=== PATIENT | female | born 1985 | race Caucasian/White ===

== ENCOUNTER 2021-10-21 15:19 | Outpatient (RCR) | payer OTHER, SELFPAY ==
[2021-10-21] MEDS: RHO(D) IMMUNE GLOBULIN 300 MCG/2 ML SYRINGE IM (14:08)
== END 2021-10-21 16:00 | disposition home or self-care (01) ==
LOC: ANHLAB 15:19
PROVIDERS: Visit Provider Obstetrics & Gynecology
DX: Z29.13 Encounter for prophylactic Rho(D) immune globulin (principal); O26.859 Spotting complicating pregnancy, unspecified trimester; O36.0190 Maternal care for anti-D [Rh] antibodies, unspecified trimester, not applicable or unspecified; Z3A.00 Weeks of gestation of pregnancy not specified
CPT/HCPCS: 36415; 85461; 90384; 96372; J2790

== ENCOUNTER 2022-03-12 15:52 | Outpatient (RCR) | payer OTHER, SELFPAY ==
[2022-03-13] MEDS: RHO(D) IMMUNE GLOBULIN 300 MCG/2 ML SYRINGE IM (16:12)
== END 2022-06-10 23:59 | disposition home or self-care (01) ==
LOC: ANHLAB 15:52
PROVIDERS: Visit Provider Obstetrics & Gynecology
DX: Z29.13 Encounter for prophylactic Rho(D) immune globulin (principal); O36.0130 Maternal care for anti-D [Rh] antibodies, third trimester, not applicable or unspecified; Z3A.00 Weeks of gestation of pregnancy not specified
CPT/HCPCS: 36415; 85461; 86850; 86900; 86901; 90384; 96372; J2790

== ENCOUNTER 2022-04-06 22:03 | Observation (INO) | payer OTHER, SELFPAY ==
[2022-04-06] VITALS (7 sets, daily range): BP systolic 103–113; BP diastolic 59–70; PULSE 106–126
[2022-04-06 22:49] LABS: Appearance Urine Slightly Cloudy (Clear); Bilirubin Urine Negative (Negative); Blood Urine Negative (Negative); Color Urine Yellow (Yellow); Glucose Urine UA Negative (Negative); Ketones Urine 4+ mg/dL (Negative); Leukocyte Esterase Ur Trace LEU/UL (Negative); Nitrate Urine Negative (Negative); Protein Urine Negative (Negative); Urobilinogen Urine 0.2 mg/dL (<2.0)
[2022-04-06 22:55] LABS: Bacteria Urine Trace /hpf; Mucus Urine Rare /lpf; Squamous Epithelial Cell Urine Many /hpf (Few)
[2022-04-06 22:59] LABS: Add Urine Microscopic? YES
[2022-04-06] MEDS: ONDANSETRON INJ 4 MG/2 ML VIAL IV PUSH (23:30)
[2022-04-06] MEDS: LACTATED RINGERS 1,000 ML 999 ML IV CONT (23:30)
[2022-04-06 23:41] LABS: Hemoglobin 10.3 g/dL (12.0-15.0); Mean Corpuscular HGB Conc 32.2 g/dl (32-36); Mean Corpuscular Hemoglobin 27.1 pg (26-34); Mean Corpuscular Volume 84.2 fl (80-100); Mean Platelet Volume 10.1 fl (7.4-10.4); Platelet Count Result 192 k/mm3 (150-375); White Blood Count 10.8 K/mm3 (4.5-10.0)
[2022-04-06 23:54] LABS: Alanine Aminotransferase 16 U/L (6-35); Albumin Level 3.9 g/dL (3.5-5.1); Alkaline Phosphatase 107 U/L (38-126); Anion Gap 6 mmol/L (8-16); Aspartate Amino Transferase 26 U/L (14-36); Bilirubin,Total 0.6 mg/dL (0.2-1.3); Blood Urea Nitrogen 9 mg/dL (7-17); Calcium 8.4 mg/dL (8.4-10.2); Carbon Dioxide 24 mmol/L (22-30); Chloride 101 mmol/L (98-107); Estimated Glomerular Filt Rate > 60; Glucose 83 mg/dL (65-110); Potassium 3.6 mmol/L (3.4-5.0); Sodium 131 mmol/L (137-145)
[2022-04-07] VITALS (36 sets, daily range): BP systolic 86–107; BP diastolic 45–64; PULSE 102–136; TEMP 37.7; O2SAT 95–100; BMI 24.2
[2022-04-07] MEDS: NIFEdipine 30 MG TAB.ER.24 PO (00:15)
[2022-04-07] MEDS: TERBUTALINE SULFATE 1 MG/ML VIAL 0.25 MG SUB-Q (02:10)
[2022-04-07] MEDS: LACTATED RINGERS 1,000 ML 100 ML IV CONT (02:10)
--- NOTE | 2022-04-07 03:38 | OBADM ---
This patient, Judith Sykes, admitted to the OB room [facility] for observation. Patient/family oriented to hospital policies and general routines including ID bracelet, bed and alarms, visiting hours, pain management, procedures, bathroom and other care routines, personal items, smoking policy, room service/diet, and visiting hours. Patient/Family are encouraged to report perceived risks to care and to ask questions if they do not understand what they are told or what they should do.
[2022-04-07 04:22] LABS: Fetal Fibronectin Negative
--- NOTE | 2022-04-10 17:00 | P.PNOB_ITS ---
OB - Triage/Final Diagnosis Visit Information Date of evaluation: 04/06/22 Reason for evaluation: threatened labor Comments/Additional reasons for admission: I have assessed the risk for this patient, Judith Sykes, and determined that she would benefit from observation care. Evaluation Laboratory results: Laboratory Tests 04/06/22 04/06/22 04/06/22 22:31 23:32 23:32 WBC 10.8 H RBC 3.80 L Hgb 10.3 L Hct 32.0 L MCV 84.2 MCH 27.1 MCHC 32.2 RDW 14.0 Plt Count 192 MPV 10.1 Sodium 131 L Potassium 3.6 Chloride 101 Carbon Dioxide 24 Anion Gap 6 L BUN 9 Creatinine 0.50 L Estim Creat Clear Calc Not Reportable Estimated GFR > 60 Glucose 83 Calcium 8.4 Total Bilirubin 0.6 AST 26 ALT 16 Alkaline Phosphatase 107 Total Protein 7.0 Albumin 3.9 Urine Color Yellow Urine Appearance Slightly cloudy Urine pH 6.0 Ur Specific [place] 1.020 Urine Protein Negative Urine Glucose (UA) Negative Urine Ketones 4+ H Ur Blood (Man) Negative Urine Nitrate Negative Urine Bilirubin Negative Urine Urobilinogen 0.2 Leukocyte Esterase Rfl Trace H Urine RBC 3-5 H Urine WBC 4-6 H Ur Squamous Epith Cells Many H Urine Bacteria Trace Urine Mucus Rare Fibronectin 04/07/22 02:20 WBC RBC Hgb Hct MCV MCH MCHC RDW Plt Count MPV Sodium Potassium Chloride Carbon Dioxide Anion Gap BUN Creatinine Estim Creat Clear Calc Estimated GFR Glucose Calcium Total Bilirubin AST ALT Alkaline Phosphatase Total Protein Albumin Urine Color Urine Appearance Urine pH Ur Specific [place] Urine Protein Urine Glucose (UA) Urine Ketones Ur Blood (Man) Urine Nitrate Urine Bilirubin Urine Urobilinogen Leukocyte Esterase Rfl Urine RBC Urine WBC Ur Squamous Epith Cells Urine Bacteria Urine Mucus Fibronectin Negative
== END 2022-04-07 03:45 | disposition home or self-care (01) ==
PROVIDERS: Advanced Practice Midwife; Admitting Provider Obstetrics & Gynecology; Visit Provider Obstetrics & Gynecology
DX: O47.03 False labor before 37 completed weeks of gestation, third trimester (principal); Z3A.31 31 weeks gestation of pregnancy
CPT/HCPCS: 36415; 80053; 81001; 82731; 85027; 96372; 96374; A9270; G0378; G0379; J0131; J2405; J3105; J7120

== ENCOUNTER 2022-05-29 06:52 | Inpatient (IN) | payer OTHER, SELFPAY ==
[2022-05-29] VITALS (62 sets, daily range): BP systolic 75–132; BP diastolic 30–89; PULSE 40–140; RESP 18; TEMP 36.8–37.1; O2SAT 86–100
--- NOTE | 2022-05-29 07:21 | LDADM ---
This patient, Judith Sykes, was admitted to Labor/Delivery/Recovery 104 on 05/29/22 at 06:52. Plans for labor, pain management and were discussed with patient. Patient/family oriented to hospital policies and general routines including ID bracelet, bed and alarms, visiting hours, pain management, procedures, bathroom and other care routines, personal items, smoking policy, room service/diet and guest tray routines, security routines, and visiting hours. Patient/Family are encouraged to report perceived risks to care and to ask questions if they do not understand what they are told or what they should do. See [facility] for further documentation.
[2022-05-29 07:41] LABS: Basophils Absolute Auto 0.1 K/mm3 (0.0-0.1); Basophils Percent Auto 0.5 % (0.2-1.2); Eosinophils Absolute Auto 0.1 K/mm3 (0-0.3); Eosinophils Percent Auto 1.3 % (0-4.4); Hematocrit 29.5 % (37.0-47.0); Hemoglobin 8.8 g/dL (12.0-15.0); Immature Granulocyte Absolute 0.05 K/mm3 (0.00-0.031); Immature Granulocyte Percent A 0.5 % (0-0.5); Lymphocytes Percent Auto 20.8 % (18.3-44.2); Mean Corpuscular HGB Conc 29.8 g/dl (32-36); Mean Platelet Volume 10.7 fl (7.4-10.4); Monocytes Absolute Auto 0.6 K/mm3 (0.1-0.6); Monocytes Percent Auto 6.4 % (2.6-8.5); Neutrophils Absolute Auto 6.4 K/mm3 (1.3-6.7); Neutrophils Percent Auto 70.5 % (45.5-73.1); Platelet Count Result 162 k/mm3 (150-375); Red Blood Count 3.83 M/mm3 (4.2-5.4); Red Cell Distribution Width 16.7 % (11.5-14.5); White Blood Count 9.1 K/mm3 (4.5-10.0)
[2022-05-29 07:42] LABS: Glucose Point of Care 71 mg/dl (65-105)
[2022-05-29 07:54] LABS: Platelet Estimate Adequate (Adequate)
[2022-05-29 07:55] LABS: Ovalocytes 1+ (NORMAL); Schistocytes None Seen (NORMAL); Tear Drop Cells 1+ (NORMAL)
--- NOTE | 2022-05-29 08:11 | WPDOBADMIT ---
Obstetrics - Admit Note Admission Note: 37 y/o here for induction of labor. GDM insulin dependent but overall very good control. Pt has requested just arom and pitocin later only if needed. VSS Contractions occasiona FHR category 1 Cervix /-2 AROM small amount of clear odorless fluid Anticipate record reviewed. No pertinent additions to the history and/or any subsequent changes in the physical findings that are not consistent with the expected course of the were found. Additions to the history and/or subsequent changes in the physical findings follow. None.
[2022-05-29 11:28] LABS: Rapid Plasma Reagin Non-Reactive (NonReactive)
[2022-05-29 11:39] LABS: Glucose Point of Care 86 mg/dl (65-105)
[2022-05-29] MEDS: OXYTOCIN 30 UNITS/NS 500 ML 30 UNITS/500 ML BAG IV CONT (14:01)
[2022-05-29] MEDS: LACTATED RINGERS 1,000 ML 125 ML IV CONT ×2 (14:02→16:05)
[2022-05-29 15:06] LABS: Glucose Point of Care 75 mg/dl (65-105)
--- NOTE | 2022-05-29 16:22 | WPDANESEPPF ---
Anes - Initial Pre Proc Eval Date/Time: 05/29/22 16:22 Surgeon: Jasper Joyce MD Pre Op Diagnosis: Induction of Labor Patient Data Age: 37 Gender: F Height: Weight: Last Vital Signs Temp 36.8 C 05/29/22 16:08 Pulse 91 05/29/22 16:04 BP 107/74 05/29/22 16:04 O2 Del Method Room Air 05/29/22 07:18 Allergies Allergy/AdvReac Type Severity Reaction Status Date / Time No Known Allergies Allergy Mild Verified 05/21/22 13:35 Home Medications Medication Instructions Recorded Confirmed Type insulin NPH isoph U-100 human 100 5 unit subcut HS 05/21/22 05/21/22 History unit/mL subcutaneous suspension (Humulin N NPH U-100 Insulin (isophane susp)) prenat.vits,deysi,[id number] 1 tablet PO DAILY 05/21/22 05/21/22 History Laboratory Tests 05/29/22 05/29/22 05/29/22 07:13 07:13 07:13 WBC 9.1 K/mm3 K/mm3 (4.5-10.0) RBC 3.83 M/mm3 L M/mm3 (4.2-5.4) Hgb 8.8 g/dL L g/dL (12.0-15.0) Hct 29.5 % L % (37.0-47.0) MCV 77.0 fl L fl (80-100) MCH 23.0 pg L pg (26-34) MCHC 29.8 g/dl L g/dl (32-36) RDW 16.7 % H % (11.5-14.5) Plt Count 162 k/mm3 k/mm3 (150-375) MPV 10.7 fl H fl (7.4-10.4) Immature Gran % (Auto) 0.5 % % (0-0.5) Neut % (Auto) 70.5 % % (45.5-73.1) Lymph % (Auto) 20.8 % % (18.3-44.2) [place] % (Auto) 6.4 % % (2.6-8.5) Eos % (Auto) 1.3 % % (0-4.4) Baso % (Auto) 0.5 % % (0.2-1.2) Lymph # (Auto) 1.90 K/mm3 K/mm3 (0.9-3.2) [place] # (Auto) 0.6 K/mm3 K/mm3 (0.1-0.6) Eos # (Auto) 0.1 K/mm3 K/mm3 (0-0.3) Baso # (Auto) 0.1 K/mm3 K/mm3 (0.0-0.1) Abs Immat Gran (auto) 0.05 K/mm3 H K/mm3 (0.00-0.031) Absolute Neuts (auto) 6.4 K/mm3 K/mm3 (1.3-6.7) Absolute Nucleated RBC 0.0 K/mm3 K/mm3 (0.0-0.012) Nucleated RBC % 0.0 % % (0.0-0.2) Platelet Estimate Adequate (Adequate) Tear Drop Cells 1+ (NORMAL) Ovalocytes 1+ (NORMAL) Schistocytes None seen (NORMAL) POC Capillary Glucose RPR Non-reactive (NonReactive) Blood Type AB Negative Antibody Screen Positive Antibody Identification Inconclusive Antigen Identification Not Reportable VERNA, IgG Interpret Not Performed VERNA, Poly Interpret Negative VERNA, Complement Interp Not Performed 05/29/22 05/29/22 05/29/22 07:35 11:35 15:03 WBC RBC Hgb Hct MCV MCH MCHC RDW Plt Count MPV Immature Gran % (Auto) Neut % (Auto) Lymph % (Auto) [place] % (Auto) Eos % (Auto) Baso % (Auto) Lymph # (Auto) [place] # (Auto) Eos # (Auto) Baso # (Auto) Abs Immat Gran (auto) Absolute Neuts (auto) Absolute Nucleated RBC Nucleated RBC % Platelet Estimate Tear Drop Cells Ovalocytes Schistocytes POC Capillary Glucose 71 mg/dl mg/dl 86 mg/dl mg/dl 75 mg/dl mg/dl (65-105) (65-105) (65-105) RPR Blood Type Antibody Screen Antibody Identification Antigen Identification VERNA, IgG Interpret VERNA, Poly Interpret VERNA, Complement Interp Patient hx anesthesia problems: none Family hx anesthesia problems: none Results Review: All pre-operative results and documents have been reviewed as part of the pre-operative evaluation. [facility] Family History Family History (Updated 05/21/22 @ 13:39 by Jacquie Thurman RN) Other
[2022-05-29] MEDS: ONDANSETRON INJ 4 MG/2 ML VIAL IV PUSH (17:30)
[2022-05-29] MEDS: PHENYLEPHRINE 1,000 MCG/10 ML SYRINGE 100 MCG IV PUSH (17:39)
--- NOTE | 2022-05-29 18:18 | P.PCNOB_ITS ---
OB - Delivery Note Procedure Delivery date: 05/29/22 Procedure: Events: Gestational Diabetes Induction method: Per Pitocin Protocol Delivery monitor: External FHT and External Uterine Route of delivery: Episiotomy description: None Laceration Description: None Quantitative Blood Loss (ml): 52 Anesthesia type: Epidural [place] Baby Date of : 05/29/22 Time of : 18:04 Weeks of gestation at delivery: 39 presentation: vertex position: Left Occiput Anterior Placenta delivery description: Spontaneous Cord Vessel Description: 3 Vessels, Nuchal Cord, Loose and Reduced
[2022-05-29] MEDS: OXYTOCIN 30 UNITS/NS 500 ML 30 UNITS/500 ML BAG 125 UNITS IV CONT (18:49)
[2022-05-29] MEDS: IBUPROFEN 600 MG TABLET PO (22:21)
[2022-05-30 04:19] VITALS: BP 104/50; PULSE 80; RESP 18; TEMP 36.9; O2SAT 100
[2022-05-30 05:37] LABS: Hematocrit 27.4 % (37.0-47.0); Hemoglobin 8.3 g/dL (12.0-15.0)
[2022-05-30 06:54] LABS: Glucose Point of Care 80 mg/dl (65-105)
[2022-05-30 07:20] VITALS: BP 96/58; PULSE 65; RESP 16; TEMP 36.5; O2SAT 99
[2022-05-30] MEDS: DOCUSATE SODIUM 100 MG CAPSULE PO (07:35)
[2022-05-30] MEDS: MULTIVIT/MIN/PREN/FOL AC/IRON TABLET 1 TAB PO (07:35)
[2022-05-30] MEDS: POLYSACCHARIDE IRON COMPLEX 150 MG CAPSULE PO ×2 (07:35→16:51)
--- NOTE | 2022-05-30 07:41 | PM.OBPNVD ---
OB - PN: Subj Subjective Date/time seen: 05/30/22 07:41 s/p vaginal delivery day 1 OB - PN: Obj Data Labs 05/30/22 03:04 Labs: Laboratory Results - last 24 hr 05/29/22 05/29/22 05/29/22 07:13 07:13 07:13 WBC 9.1 RBC 3.83 L Hgb 8.8 L Hct 29.5 L MCV 77.0 L MCH 23.0 L MCHC 29.8 L RDW 16.7 H Plt Count 162 MPV 10.7 H Immature Gran % (Auto) 0.5 Neut % (Auto) 70.5 Lymph % (Auto) 20.8 Al[place]alfa % (Auto) 6.4 Eos % (Auto) 1.3 Baso % (Auto) 0.5 Lymph # (Auto) 1.90 [place] # (Auto) 0.6 Eos # (Auto) 0.1 Baso # (Auto) 0.1 Abs Immat Gran (auto) 0.05 H Absolute Neuts (auto) 6.4 Absolute Nucleated RBC 0.0 Nucleated RBC % 0.0 Platelet Estimate Adequate Tear Drop Cells 1+ Ovalocytes 1+ Schistocytes None seen POC Capillary Glucose RPR Non-reactive Blood Type AB Negative Antibody Screen Positive Antibody Identification Inconclusive Antigen Identification Not Reportable VERNA, IgG Interpret Not Performed VERNA, Poly Interpret Negative VERNA, Complement Interp Not Performed 05/29/22 05/29/22 05/29/22 07:35 11:35 15:03 WBC RBC Hgb Hct MCV MCH MCHC RDW Plt Count MPV Immature Gran % (Auto) Neut % (Auto) Lymph % (Auto) [place] % (Auto) Eos % (Auto) Baso % (Auto) Lymph # (Auto) [place]alf[place] # (Auto) Eos # (Auto) Baso # (Auto) Abs Immat Gran (auto) Absolute Neuts (auto) Absolute Nucleated RBC Nucleated RBC % Platelet Estimate Tear Drop Cells Ovalocytes Schistocytes POC Capillary Glucose 71 86 75 RPR Blood Type Antibody Screen Antibody Identification Antigen Identification VERNA, IgG Interpret VERNA, Poly Interpret VERNA, Complement Interp 05/30/22 05/30/22 05/30/22 03:04 03:04 06:47 WBC RBC Hgb 8.3 L Hct 27.4 L MCV MCH MCHC RDW Plt Count MPV Immature Gran % (Auto) Neut % (Auto) Lymph % (Auto) [place] % (Auto) Eos % (Auto) Baso % (Auto) Lymph # (Auto) [place] # (Auto) Eos # (Auto) Baso # (Auto) Abs Immat Gran (auto) Absolute Neuts (auto) Absolute Nucleated RBC Nucleated RBC % Platelet Estimate Tear Drop Cells Ovalocytes Schistocytes POC Capillary Glucose 80 RPR Blood Type AB Negative Antibody Screen TNP Antibody Identification Antigen Identification VERNA, IgG Interpret VERNA, Poly Interpret VERNA, Complement Interp OB - PN A/P Plan day: 1 Time Spent With Patient Time: Total time spent is greater than 50% in coordination of care (as documented) at patient's floor/unit and/or counseling patient: Review of Systems Review of Systems: All systems reviewed & are unremarkable except as noted in HPI and below Exam Const: General: cooperative, healthy appearing and comfortable
--- NOTE | 2022-05-30 09:26 | PC.NURSE ---
On 05/30/22, the student, Clive Gonzalez, provided care and completed [facility] documentation on this patient. I have reviewed the student's documentation and agree with the findings.
--- NOTE | 2022-05-30 11:45 | PC.NURSE ---
0840 Introductions were made, then consulted with patient to assess needs related to . Mother led the conversation with her?plans to feed?her infant, the?experience so far and confirmed a successful history. Resources provided for inpatient and outpatient services with a business card and name written on the white board. Mother voiced understanding of information, states she is latching well with no pain and will call if there is a request for assistance. Reported to the primary RN.
[2022-05-30 12:19] VITALS: BP 103/65; PULSE 66; RESP 16; TEMP 36.8; O2SAT 100
[2022-05-30] MEDS: IBUPROFEN 600 MG TABLET PO ×2 (13:09→16:51)
--- NOTE | 2022-05-30 14:02 | WPDANLDPN2 ---
Anes-Prog Note L&D Date/Time: 05/30/22 14:02 Comfortable throughout: labor and delivery Neuraxial method: epidural Epidural/Spinal procedure site: clean & non-tender Neuro status: Neuro function grossly intact. Cardiovascular status: normal Respiratory status: normal Airway patency: baseline Mental status: baseline Post-Op hydration status: normal Vital Signs: Last Vital Signs Temp 36.8 C 05/30/22 12:19 Pulse 66 05/30/22 12:19 Resp 16 05/30/22 12:19 BP 103/65 05/30/22 12:19 Pulse Ox 100 05/30/22 12:19 O2 Del Method Room Air 05/30/22 06:47 Pain score (VAS): 1 I/O: Intake & Output 05/29/22 05/30/22 05/30/22 23:59 07:59 15:59 Intake Total 1500 300 Output Total 50 Balance 1450 300 Post-procedural complaints: none Patient feedback: Patient satisfied with anesthetic care.
[2022-05-30] MEDS: RHO(D) IMMUNE GLOBULIN 300 MCG/2 ML SYRINGE IM (14:29)
[2022-05-30 16:55] VITALS: BP 100/64; PULSE 81; RESP 18; TEMP 36.8; O2SAT 100
[2022-05-30 20:34] VITALS: BP 104/66; PULSE 78; RESP 16; TEMP 36.4; O2SAT 100
[2022-05-31] MEDS: IBUPROFEN 600 MG TABLET PO ×2 (00:12→06:15)
[2022-05-31 07:35] VITALS: BP 110/81; PULSE 65; RESP 16; TEMP 37.1; O2SAT 100
[2022-05-31] MEDS: MULTIVIT/MIN/PREN/FOL AC/IRON TABLET 1 TAB PO (07:52)
[2022-05-31] MEDS: POLYSACCHARIDE IRON COMPLEX 150 MG CAPSULE PO (07:52)
[2022-05-31] MEDS: ACETAMINOPHEN 325 MG TABLET 650 MG PO (07:52)
--- NOTE | 2022-05-31 08:15 | PM.OBPNVD ---
OB - PN: Subj Subjective Date/time seen: 05/31/22 08:15 Patient comments: no complaints baby status: doing well OB - PN: Obj Data Labs 05/30/22 03:04 Labs: Laboratory Results - last 24 hr 05/30/22 03:04 Blood Type AB Negative Antibody Screen TNP Screen Negative Baby's Blood Type Ab pos Baby's VERNA Negative Doses of RhIg Required 1 OB - PN A/P Plan day: 2 Plan: routine care and discharge home (F/U in 4 weeks) Time Spent With Patient Time: Total time spent is greater than 50% in coordination of care (as documented) at patient's floor/unit and/or counseling patient: Time with patient: less than 15 minutes Review of Systems Review of Systems: All systems reviewed & are unremarkable except as noted in HPI and below Exam Narrative: Fundus firm and vaginal flow controlled. No lower ext redness, warmth, or edema. Negative homans. Const: General: comfortable Chest: Breast/axilla inspection: normal inspection of the breasts Resp: Effort & Inspection: normal respiratory effort Cardio: Rate: regular rate GI: GI Palp: Yes Soft to palpation Psych: Appearance: grossly normal Affect: normal affect Attitude: cooperative Thought content: Yes Normal thought content present Judgement: Good judgement present (Psych)
--- NOTE | 2022-05-31 08:17 | P.DS_ITS ---
DS: Admitting Diagnosis Discharge Date 05/31/22 Admitting Diagnosis Labor DS: Discharge Diagnosis Discharge Diagnosis (1) Vaginal delivery: Code(s): O80 - Encounter for full-term uncomplicated delivery Status: Acute OB - DS: Summary OB Procedures : None OB Procedures Intrapartum: Spontaneous Vag Delivery OB Procedures: : None Time Spent with Patient Time attestation: Total time spent providing and/or coordinating discharge services: DS: Data Data Completed and Pending Pending studies at discharge: Pending at discharge 05/29/22 18:11 Surgical [PTH] Routine Labs on day of discharge: Labs from last 24 hours 05/30/22 03:04 Blood Type AB Negative Antibody Screen TNP Screen Negative Baby's Blood Type Ab pos Baby's VERNA Negative Doses of RhIg Required 1 Discharge Plan Discharge Attending physician on discharge: Jolanta Arrington Discharging Clinician: Jolanta Arrington Patient Disposition: Home, Self-Care Activity: pelvic rest Diet: as tolerated Patient Instructions: Antibiotic Form Stand Alone Forms: General Discharge Information Follow-up/Referrals: Jolanta Arrington CNM [Certified Nurse Credit Front Office Developer] - Discharge Medications: New polysaccharide iron complex 150 mg iron Capsule 150 mg PO DAILY Qty: 30 0RF Continued #2 Tablet 1 tablet PO DAILY Discontinued Humulin N NPH U-100 Insulin 100 unit/mL Suspension 5 unit subcut HS Date of admission: 05/29/22 06:52 Primary Care Provider: UNKNOWN,DOCTOR Admitting Provider: Jasper Joyce Attending physician on admission: Jasper Joyce Condition: Stable
--- NOTE | 2022-05-31 08:29 | PC.NURSE ---
Patient to view the discharge video Mother & Baby Care, The First Two Weeks online at home. Patient was given the opportunity and encouraged to ask questions. Patient verbalized understanding of information shared and has been given the mother/baby guide for home reference.
[2022-06-01 13:12] VITALS: BP 115/59; PULSE 89; RESP 18; TEMP 37.2; O2SAT 98
== END 2022-05-31 09:20 | disposition home or self-care (01) | DRG 560 ==
LOC: ANHLDR 06:58 → ANHOB2 20:42
PROVIDERS: Admitting Provider Obstetrics & Gynecology; Referring Provider Advanced Practice Midwife; Visit Provider Obstetrics & Gynecology
DX: O24.424 Gestational diabetes mellitus in childbirth, insulin controlled (principal); O69.81X0 Labor and delivery complicated by cord around neck, without compression, not applicable or unspecified; Z3A.39 39 weeks gestation of pregnancy; Z37.0 Single live birth
CPT/HCPCS: 36415; 82948; 85014; 85018; 85025; 85461; 86592; 86850; 86880; 86900; 86901; 86902; 88307; 90384; A9270; J2370; J2405; J2590; J2790; J2795; J7120